=== PATIENT | female | born 1965 | race Caucasian/White ===

== ENCOUNTER 2017-10-28 19:41 | Emergency (ER) | END 2017-10-29 06:05 ==

== ENCOUNTER 2018-08-08 06:22 | Day surgery (SDC) | END 2018-08-08 10:45 | disposition home or self-care (01) ==

== ENCOUNTER 2018-09-19 12:08 | Emergency (ER) | END 2018-09-19 13:50 | disposition home or self-care (01) ==

== ENCOUNTER 2018-12-25 13:45 | Emergency (ER) | payer OTHER ==
[~2018-12-25] VITALS: Ht 167.6 cm; Wt 65.5 kg
[~2018-12-25 13:45] MED LIST: ALBU8.5H8 INH; ASPI81TA52 PO; CLOP75TA27 PO; LEVO750T25 PO; LITH300T5 PO; LOSA25TA12 PO; MED4DP PO; MELO15TA30 PO; METO-335 PO; PROM6.2515 PO; PSEU-79 PO
[2018-12-25 14:18] VITALS: Ht 167.6 cm; Wt 65.5 kg
[2018-12-25] MEDS ORDERED: CEPH-443 PO (15:04)
[2018-12-25] MEDS ORDERED: SULF1TAB31 PO (15:04)
[2018-12-25] MEDS ORDERED: IBUPROFEN 800 MG TAB PO ONE (15:30)
--- NOTE | 2018-12-25 15:37 | ERD ---
ER Documentation Chief Complaint Chief Complaint Complains of right arm/elbow pain x 3 days HPI 53-year-old female presenting with abscess to right antecubital space. She states she noted a few days ago's. Denies any recent IV drug use. She states in the past she has done IV drug use with that was many years ago. She is up-to-date on her tetanus shot. Denies fevers. Has not use any medications. She had noted some drainage from the abscess site. Denies other medical problems. NKDA. Surgical history denies. Social history denies ROS All systems reviewed and are negative except as per history of present illness. Medications Home Meds Active Scripts Sulfamethoxazole/Trimethoprim* (Bactrim Ds* Tablet) 1 Each Tablet, 1 TAB PO BID, #14 TAB Prov:SHIRIN CALZADA PA-C 12/25/18 Cephalexin* (Keflex*) 500 Mg Capsule, 500 MG PO QID for 7 Days, CAP Prov:SHIRIN CALZADA PA-C 12/25/18 Pseudoephedrine Hcl* (Suphedrin*) 30 Mg Tablet, 30 MG PO Q6 PRN for CONGESTION, #30 TAB Prov:SHIRIN CALZADA PA-C 09/19/18 Promethazine Hcl* (Promethazine Hcl* Syrup) 6.25 Mg/5 Ml Syrup, 6.25 MG PO Q6H PRN for COUGH, #100 ML Prov:SHIRIN CALZADA PA-C 09/19/18 Methylprednisolone* (Medrol* DOSE PACK) 4 Mg/Dose-Pack Tab.ds.pk, 4 MG PO . DIRECTED, #1 PACKET Prov:SHIRIN CALZADA PA-C 09/19/18 Albuterol Sulfate* (Proair HFA*) 8.5 Gm Hfa.aer.ad, 2 PUFF INH Q4, #1 INHALER Prov:SHIRIN CALZADA PA-C 09/19/18 Levofloxacin* (Levaquin*) 750 Mg Tablet, 750 MG PO DAILY for 5 Days, TAB Prov:SHIRIN CALZADA PA-C 09/19/18 Reported Medications Meloxicam* (Mobic*) 15 Mg Tablet, 15 MG PO DAILY, #30 TAB 08/08/18 Aspirin (Low Dose Aspirin) 81 Mg Tablet.dr, 81 MG PO DAILY, #30 TAB 08/08/18 Clopidogrel Bisulfate (Clopidogrel) 75 Mg Tablet, 75 MG PO DAILY, #30 TAB 08/08/18 Metoprolol Succinate* (Toprol XL*) 25 Mg Tab.sr.24h, 25 MG PO DAILY, #30 TAB 08/08/18 [place] Carbonate* ([place] Carbonate*) 300 Mg Tablet, 300 MG PO DAILY, TAB 08/08/18 Losartan Potassium* (Losartan Potassium*) 25 Mg Tablet, 25 MG PO DAILY, TAB 10/28/17 Allergies Allergies: Coded Allergies: No Known Allergy (Unverified , 08/08/18) PMhx/Soc History of Surgery: Yes (appendectomy,cardiac stent) Anesthesia Reaction: No Hx Neurological Disorder: No Hx Respiratory Disorders: Yes (ASTHMA) Hx Cardiac Disorders: Yes (NC,HTN) Hx Psychiatric Problems: Yes (BIPOLAR) Hx Miscellaneous Medical Probl: No Hx Alcohol Use: Yes (OCCASIONAL) Hx Substance Use: No Hx Tobacco Use: Yes Smoking Status: Current every day smoker FmHx Family History: No diabetes, No coronary disease, No other Physical Exam Vitals Vital Signs Date Temp Pulse Resp B/P (MAP) Pulse Ox O2 O2 Flow FiO2 Time Delivery Rate 12/25/18 98.0 87 20 150/74 96 14:18 (99) Physical Exam GENERAL: The patient is well-appearing, well-nourished, in no acute distress CHEST: Clear to auscultation bilaterally. There are no rales, wheezes or rhonchi. HEART: Regular rate and rhythm. No murmurs, clicks, rubs or gallops. EXTREMITIES: Equal pulses bilaterally. There is no peripheral clubbing, cyanosis or edema. No focal swelling or erythema. Full range of motion. Grossly neurovascularly intact. NEUROLOGIC: Alert and oriented. Cranial nerves II through XII intact. Motor strength in all 4 extremities with 5 out of 5 strength. SKIN: Erythematous site noted on the antecubital space of the right arm. No fluctuance. Mild induration. No lymphatic streaking. Results 24 hrs Current Medications Medications Dose Sig/Melissa Start Time Status Last (Trade) Ordered Route PRN Stop Time Admin Dose Reason Admin Ibuprofen 800 mg ONCE ONCE 12/25/18 DC 3/18/19 (Motrin) PO 15:30 15:30 12/25/18 15:31 Procedures/MDM MDM: 53-year-old female presenting with infection noted to the intrathecal space of the right arm. I have low suspicion for lymphatic streaking. I have low suspicion for retained foreign body. Patient has a localized infection will be treated with antibiotics. Patient is recommended to apply warm compresses and return in 2 days for possible incision and drainage at that time. There is no fluctuance noted on exam and incision and drainage is not required at this time. Patient is discharged stricter precautions. All questions answered at discharge Departure Diagnosis: Primary Impression: Abscess Condition: Stable Patient Instructions: Abscess, Antiobiotic Treatment Only Referrals: [facility] (PCP) Additional Instructions: FOLLOW UP WITH YOUR PRIMARY CARE PHYSICIAN TOMORROW.Return to this facility if you are not improving as expected. SHIRIN CALZADA PA-C Dec 25, 2018 15:37
== END 2018-12-25 15:45 | disposition home or self-care (01) ==
LOC: FTE 13:45
DX: L02.413 Cutaneous abscess of right upper limb (principal); J45.909 Unspecified asthma, uncomplicated; I10 Essential (primary) hypertension; I25.2 Old myocardial infarction; F17.210 Nicotine dependence, cigarettes, uncomplicated; Z79.01 Long term (current) use of anticoagulants; Z79.82 Long term (current) use of aspirin; Z98.61 Coronary angioplasty status
CPT/HCPCS: Z7502; Z7610; 99283

== ENCOUNTER 2019-05-15 05:42 | Day surgery (SDC) | payer OTHER ==
[~2019-05-15] VITALS: Ht 160 cm; Wt 60.5 kg
[2019-05-15] VITALS (11 sets, daily range): BP systolic 134–185; BP diastolic 62–94; PULSE 83–98; RESP 18–24; Ht 160 cm; Wt 60.5 kg
[~2019-05-15 05:42] MED LIST changes: +ALBU18HF INHALATION; +BUPR-165 PO; +CEPH-443 PO; +FLOV44 INHALATION; +MONT10TA21 PO; +SULF1TAB31 PO; +TRAZ-111 PO
[2019-05-15] MEDS ORDERED: TROPICAMIDE 1% 15 ML OPH OPER SCH (06:00)
[2019-05-15] MEDS ORDERED: CYCLOPENTOLATE/PHENYLEPH 2 ML OPH OPER SCH (06:00)
[2019-05-15] MEDS ORDERED: SOD CHLORIDE 0.9% 1,000 ML IV SCH (06:00)
[2019-05-15] MEDS ORDERED: MOXIFLOXACIN 0.5% 3 ML OPH OPER SCH (06:00)
[2019-05-15] MEDS ORDERED: DICLOFENAC 0.1% 2.5 ML OPH OPER SCH (06:00)
[2019-05-15] MEDS ORDERED: EPINEPHrine 1 MG INJ ONE (06:48)
[2019-05-15] MEDS ORDERED: DEXAMETHASONE 4 MG/ML 1 ML INJ ONE (06:48)
[2019-05-15] MEDS ORDERED: CARBACHOL 0.01% 1.5 ML OPH INJ ONE (06:48)
[2019-05-15] MEDS ORDERED: CEFAZOLIN 1 GM INJ ONE ×2 (06:48→07:32)
[2019-05-15] MEDS ORDERED: LIDOCAINE 4% (MPF) 5 ML INJ ONE (06:48)
[2019-05-15] MEDS ORDERED: TETRACAINE 0.5% 4 ML OPH ONE (06:48)
[2019-05-15] MEDS ORDERED: NA HYALURONATE/CHONDROITIN 0.5 ML SYG ONE (06:49)
[2019-05-15] MEDS ORDERED: GENTAMICIN 80 MG INJ ONE (06:49)
--- NOTE | 2019-05-15 07:07 | PREOPHP ---
DATE OF ADMISSION: 05/15/2019 HISTORY OF PRESENT ILLNESS: This 53-year-old patient is admitted for elective cataract surgery of th e left eye. Patient has had progressive deterioration of vision in both eyes and approximately 10 mo nths ago underwent cataract surgery in the right eye with excellent visual result. The patient denie s prior history of eye disease or injury. her systemic history is positive for type 2 diabetes melli tus, bipolar depressive disorder, systemic hypertension. CURRENT MEDICATIONS INCLUDE: 1. Acetaminophen. 2. Aspirin (discontinued 1 week prior to surgery). 3. Bupropion. 4. Diclofenac. 5. Flonase. 6. Flovent. 7. Metformin. 8. Metoprolol. 9. Mobic. 10. Plavix (discontinued prior to surgery). 11. Singulair. 12. Trazodone. 13. Ventolin. ALLERGIES: THE PATIENT HAS NO KNOWN ALLERGIES. PHYSICAL EXAMINATION: The visual acuity with best correction is 20/25 in the right eye and finger co unting at 5 feet in the left eye. Slit lamp examination reveals a posterior chamber intraocular lens in appropriate position in the right eye and an anterior cortical and posterior subcapsular cataract in the left eye. Applanation tonometry is 19 mmHg. Examination of the retina in the right eye appe ars within normal limits. The left eye is obscured by the advanced cataract. DIAGNOSIS: Advanced mixed cataract, left eye. PLAN: Cataract extraction with lens implant, left eye. The risks and alternatives to the surgery richards ve been discussed with the patient as well as the hope for improvement of visual acuity leading to gr eater ability to perform activities of daily living. The patient understands this and agrees to proc eed with surgery. Dictated By: CAT MERCER/MIMI Conf#: [id number] DID#: [id number]
--- NOTE | 2019-05-15 07:15 | PREAC ---
Date/Time of Note Date/Time of Note DATE: 05/15/19 TIME: 07:11 Anesthesia Eval and Record Evaluation Time Pre-Procedure Interview DATE: 05/15/19 TIME: 07:11 Age 53 Sex female NPO: 8 hrs Preoperative diagnosis LEFT EYE CATARACT Planned procedure LEFT CATARACT EXTRACTION, Past Medical History Past Medical History: Includes Cardio: HTN, [place] Endo: Diabetes Pulm: Smoking Hx (40 PY), Asthma Surgery & Anesthesia Issues No known issue Meds Anticoagulation: No Beta Carlo within 24 hr: No Reason Beta Carlo not given: Pt. not on B-Carlo Active Scripts Sulfamethoxazole/Trimethoprim* (Bactrim Ds* Tablet) 1 Each Tablet, 1 TAB PO BID, #14 TAB Prov:SHIRIN CALZADA PA-C 12/25/18 Pseudoephedrine Hcl* (Suphedrin*) 30 Mg Tablet, 30 MG PO Q6 PRN for CONGESTION, #30 TAB Prov:SHIRIN CALZADA PA-C 09/19/18 Promethazine Hcl* (Promethazine Hcl* Syrup) 6.25 Mg/5 Ml Syrup, 6.25 MG PO Q6H PRN for COUGH, #100 ML Prov:SHIRIN CALZADA PA-C 09/19/18 Methylprednisolone* (Medrol* DOSE PACK) 4 Mg/Dose-Pack Tab.ds.pk, 4 MG PO . DIRECTED, #1 PACKET Prov:SHIRIN CALZADA PA-C 09/19/18 Albuterol Sulfate* (Proair HFA*) 8.5 Gm Hfa.aer.ad, 2 PUFF INH Q4, #1 INHALER Prov:SHIRIN CALZADA PA-C 09/19/18 Levofloxacin* (Levaquin*) 750 Mg Tablet, 750 MG PO DAILY for 5 Days, TAB Prov:SHIRIN CALZADA PA-C 09/19/18 Reported Medications Meloxicam* (Mobic*) 15 Mg Tablet, 15 MG PO DAILY, #30 TAB 08/08/18 Aspirin (Low Dose Aspirin) 81 Mg Tablet.dr, 81 MG PO DAILY, #30 TAB 08/08/18 Clopidogrel Bisulfate (Clopidogrel) 75 Mg Tablet, 75 MG PO DAILY, #30 TAB 08/08/18 Metoprolol Succinate* (Toprol XL*) 25 Mg Tab.sr.24h, 25 MG PO DAILY, #30 TAB 08/08/18 [place] Carbonate* ([place] Carbonate*) 300 Mg Tablet, 300 MG PO DAILY, TAB 08/08/18 Losartan Potassium* (Losartan Potassium*) 25 Mg Tablet, 25 MG PO DAILY, TAB 10/28/17 Discontinued Scripts Cephalexin* (Keflex*) 500 Mg Capsule, 500 MG PO QID for 7 Days, CAP Prov:SHIRIN CALZADA PA-C 12/25/18 Current Medications Diclofenac Sodium (Voltaren 0.1%) 1 drop Q5 MIN X 3 OPER Last administered on 05/15/19at 06:24; Admin Dose 1 DROP; Start 05/15/19 at 06:00 Tropicamide (Mydriacyl 1%) 1 drop Q5 MIN X3 OPER Last administered on 05/15/19at 06:23; Admin Dose 1 DROP; Start 05/15/19 at 06:00 Moxifloxacin HCl (Vigamox) 1 drop Q5 MIN X 3 OPER Last administered on 05/15/19at 06:23; Admin Dose 1 DROP; Start 05/15/19 at 06:00 Cyclopentolate/ Phenylephrine (Cyclomydril Oph 2 ml) 1 drop Q5 MIN X 3 OPER Last administered on 05/15/19at 06:23; Admin Dose 1 DROP; Start 05/15/19 at 06:00 Sodium Chloride 1,000 ml @ 25 mls/hr Q24H IV Last administered on 05/15/19at 06:22; Admin Dose 25 MLS/HR; Start 05/15/19 at 06:00 Meds reviewed: Yes Allergies Coded Allergies: No Known Allergy (Unverified , 05/15/19) Allergies Reviewed: Yes Labs/Studies Labs Reviewed: Reviewed by anesthesiologist test: Negative Studies: ECG (NL), CXR (NAPD) Pre-procedure Exam Last vitals Vital Signs Date Temp Pulse Resp B/P (MAP) Pulse Ox O2 O2 Flow FiO2 Time Delivery Rate 05/15/19 97.4 96 18 146/73 98 Room Air 06:47 (97) Airway: Adequate mouth opening, Adequate thyromental dist Mallampati: Mallampati II Teeth: Abnormal (MISSING LOWER INCISORS AND A LOOSE LOWER ?CANINE) Lung: Normal Heart: Normal ASA Physical Status ASA physical status: 3 Emergency: None Planned Anesthetic General/MAC: MAC Planned Pain Management Parenteral pain med Pre-operative Attestations Prior to commencing anesthesia and surgery, the patient was re-evaluated, there was verification of: *The patient's identity *The results of appropriate recent lab work and preoperative vital signs *The above evaluation not changing prior to induction *Anesthetic plan, risk benefits, alternative and complications discussed with patient/family; questions answered; patient/family understands, accepts and wishes to proceed. Aurelio Ureña M.D. May 15, 2019 07:15
[2019-05-15] MEDS ORDERED: HYDROmorphONE 1 MG/5 ML IV SYRINGE IV PRN ×3 (07:30)
[2019-05-15] MEDS ORDERED: DESFLURANE 15 MIN ONE (07:30)
[2019-05-15] MEDS ORDERED: hydrALAzine 20 MG INJ IV PRN (07:30)
[2019-05-15] MEDS ORDERED: TRIMETHOBENZAMIDE 100 MG/ML VIAL IM PRN (07:30)
[2019-05-15] MEDS ORDERED: FENTAnyl 50 MCG/ML VIAL IV PRN ×3 (07:30)
[2019-05-15] MEDS ORDERED: OXYCODONE/ACETAMINOPHEN (5/325) TAB PO PRN ×2 (07:30)
[2019-05-15] MEDS ORDERED: ONDANSETRON 4 MG INJ IV PRN (07:30)
[2019-05-15] MEDS ORDERED: LABETALOL HCL 20MG INJ IV PRN (07:30)
[2019-05-15] MEDS ORDERED: DIPHENHYDRAMINE 50 MG INJ IV PRN (07:30)
[2019-05-15] MEDS ORDERED: IPRATROPIUM (NEB) 0.5 MG/2.5 ML AMP HHN PRN (07:30)
[2019-05-15] MEDS ORDERED: MEPERIDINE 25 MG INJ IV PRN (07:30)
[2019-05-15] MEDS ORDERED: MIDAZOLAM 1 MG/ML 2 ML INJ IV PRN (07:30)
[2019-05-15] MEDS ORDERED: ALBUTEROL 0.083% (NEB) 2.5 MG/3 ML AMP HHN PRN (07:30)
[2019-05-15] MEDS ORDERED: EPHEDrine 25 MG/5 ML SYG IV PRN (07:30)
[2019-05-15] MEDS ORDERED: ROCURONIUM 50 MG INJ ONE (07:32)
[2019-05-15] MEDS ORDERED: PROPOFOL 20 ML ONE (07:32)
[2019-05-15] MEDS ORDERED: NEOSTIGMINE 3 MG/3 ML SYRINGE ONE (07:32)
[2019-05-15] MEDS ORDERED: GLYCOPYRROLATE 0.4 MG INJ ONE (07:32)
[2019-05-15] MEDS ORDERED: FENTAnyl 50 MCG/ML VIAL ONE (07:33)
[2019-05-15] MEDS ORDERED: MIDAZOLAM 1 MG/ML 2 ML INJ ONE (07:33)
[2019-05-15] MEDS ORDERED: DEXAMETHASONE 4 MG/ML 5 ML INJ ONE (07:36)
[2019-05-15] MEDS ORDERED: ONDANSETRON 4 MG INJ ONE (07:36)
[2019-05-15] MEDS ORDERED: SUGAMMADEX SODIUM 200 MG/2 ML VIAL IV ONE (08:02)
--- NOTE | 2019-05-15 08:23 | SIPON ---
Date/Time of Note Date/Time of Note DATE: 05/15/19 TIME: 08:22 Operative Report Preoperative Diagnosis nuclear sclerotic & posterior subcapsular cataract os Postoperative Diagnosis mature cataract os Operation/Procedure Performed cataract extraction with lens implant os Surgeon cat rai sales service assistant none Anesthesia: general Estimated blood loss: none Transfusion Required none Specimen none Grafts/Implants posterior chamber lens implant Complications none CAT RAI MD May 15, 2019 08:23
[2019-05-15] MEDS ORDERED: ALBUTEROL/IPRATROPIUM (NEB) 3 ML AMP ONE (08:25)
--- NOTE | 2019-05-15 08:39 | PAC ---
Date/Time of Note Date/Time of Note DATE: 05/15/19 TIME: 08:38 Post-Anesthesia Notes Post-Anesthesia Note Last documented vital signs Vital Signs Date Temp Pulse Resp B/P (MAP) Pulse Ox O2 O2 Flow FiO2 Time Delivery Rate 05/15/19 97.4 96 18 146/73 98 Room Air 06:47 (97) Activity: WNL Respiratory function: WNL Cardiovascular function: WNL Mental status: Baseline Pain reasonably controlled: Yes Hydration appropriate: Yes Nausea/Vomiting absent: Yes Aurelio Ureña M.D. May 15, 2019 08:39
--- NOTE | 2019-05-15 10:10 | OPR ---
DATE OF OPERATION: 05/15/2019 PREOPERATIVE DIAGNOSES: Nuclear sclerotic and posterior subcapsular cataract/mature cataract, left e ye. POSTOPERATIVE DIAGNOSES: Nuclear sclerotic and posterior subcapsular cataract/mature cataract, left eye. OPERATION PERFORMED: Cataract extraction with lens implant, left eye. SURGEON: Cat De La Torre M.D. ANESTHESIOLOGIST: Aurelio Ureña M.D. ANESTHESIA: Local standby. PROCEDURE: As the phacoemulsification of the lens nucleus was performed, it was noted that the lens nucleus was extremely hard and therefore, a higher ultrasonic setting was required in order to emulsi fy the lens nucleus. The patient was brought to the operating room and placed on the table with an IV in place and the pat ient attached to an electrician substation supervisor. Oxygen was given via face mask. After some intravenous sedation was administered, local anesthesia was given using Xylocaine 2% with epinephrine, mixed with Marcaine 0.5%. This was given in a lid block and retrobulbar injection. The patient was then prepped and draped in the usual sterile manner. A wire lid speculum was inserted between the lids of the left eye. A Superblade was used to enter th e anterior chamber at the corneoscleral limbus at the 10:30 o'clock position. A separate incision wa s made using a 3.0-mm keratome which entered the corneoscleral junction at the 12 o'clock position. Through this 3-mm opening, an irrigating cystotome was introduced into the anterior chamber. The oralia mber was filled with Viscoat and an anterior capsulotomy was performed. Balanced salt solution was t hen used for hydrodissection of the lens. A phacoemulsification handpiece was then brought into the field and introduced into the anterior chamber. The lens nucleus was emulsified using a deep groove and cracking the nucleus into quadrants. Following this, each quadrant was aspirated and emulsified at the pupillary margin. After this was completed, the irrigation/aspiration handpiece was brought to the field, introduced in to the posterior chamber, and the lens cortical material was removed. When this was completed, addit ional Viscoat was injected into the anterior and posterior chambers. The 3-mm opening had its internal lips enlarged, and then the posterior chamber intraocular lens nuris uring 24.5 diopters ([employer] Model LI61AO) was then injected into the posterior c hamber using the lens injector system. After the leading haptic was introduced into the capsular bag and the lens optic was present in the center of the eye, the injector was removed and the trailing h aptic was grasped with non-toothed forceps and introduced into the capsular fold superiorly. A [place] ey hook was then used to rotate the intraocular lens so that the lips were oriented in the horizontal meridian. One 10-0 nylon suture was placed across the wound. Prior to tying, the irrigation/aspiration handpiece was reintroduced into the anterior chamber to rem ove the Viscoat. Miochol was instilled to constrict the pupil, and then the 10-0 nylon suture was ti ed. The ends were cut short and then the knot was buried. Then, 0.5 mL of dexamethasone and 0.5 mL of Ancef were injected into the sub-[place]on space in the infer ior fornix. Ciloxan drops were then placed on the surface of the eye. The speculum was removed and a patch was applied. The patient then left the operating room in satisfactory condition. Dictated By: CAT MERCER/MIMI Conf#: [id number] DID#: [id number]
== END 2019-05-15 09:30 | disposition home or self-care (01) ==
LOC: SDS 05:42
PROVIDERS: ATTEND Ophthalmology
DX: H25.12 Age-related nuclear cataract, left eye (principal); E11.9 Type 2 diabetes mellitus without complications; I10 Essential (primary) hypertension; J45.909 Unspecified asthma, uncomplicated
CPT/HCPCS: 66984; 82962; 94664; J0171; J0690; J1100; J1580; J2250; J2405; J3010; V2632; Z7512; Z7610; J2710